=== PATIENT | female | born 2000 | race Two or more races ===

== ENCOUNTER 2019-06-01 21:03 | Emergency (ER) | payer BC, MEDICAID ==
[~2019-06-01] VITALS: Ht 157.5 cm; Wt 58.9 kg
--- NOTE | 2019-06-01 21:29 | NUR ---
FIRST CONTACT WITH PT. PT C/O MID ABDOMINAL PAIN WITH NAUSEA AFTER EATING FOR TWO DAYS, WORSENING TODAY. BLOOD IN STOOL THIS AM. PT'S AOX4. RESP SEVEN AND UNLABORED. BP/SPO2 MONITORS IN PLACE. CALL LIGHT WITHIN REACH. AWAITING ORDERES.
--- NOTE | 2019-06-01 21:48 | NUR ---
PT IS NOT ABLE TO PROVIDE URINE SAMPLE AT THIS TIME.
[2019-06-01 21:51] LABS: BASOPHILS # (AUTO) 0.03 x10^3/uL (0-0.3); BASOPHILS % (AUTO) 1 % (0-1); EOSINOPHILS % (AUTO) 2 % (1-7); LYMPHOCYTES # (AUTO) 1.84 x10^3/uL (1-6.1); LYMPHOCYTES % (AUTO) 31 % (22-44); MD NO; MEAN CORPUSCULAR HEMOGLOBIN 26.3 pg (27.0-34.8); MEAN CORPUSCULAR HGB CONC 32.6 g/dL (32.4-35.8); MEAN CORPUSCULAR VOLUME 80.8 fL (80-100); MEAN PLATELET VOLUME 9.3 fL (7.4-10.4); MONOCYTES # (AUTO) 0.43 x10^3/uL (0-1.4); MONOCYTES % (AUTO) 7 % (2-9); NEUTROPHILS # (AUTO) 3.59 x10^3/uL (1.8-8.0); NEUTROPHILS % (AUTO) 60 % (42-75); PLATELET COUNT 271 x10^3/uL (130-400); RED BLOOD COUNT 4.58 x10^6/uL (3.82-5.3)
[2019-06-01] MEDS ORDERED: ONDANSETRON 2MG/ML, 2ML ONE (21:58)
[2019-06-01] MEDS ORDERED: MORPHINE SULFATE 4 MG/ML, 1ML ONE (21:59)
[2019-06-01] MEDS ORDERED: MORPHINE SULFATE 4 MG/ML, 1ML IVPush PRN (22:00)
[2019-06-01] MEDS ORDERED: ONDANSETRON 2MG/ML, 2ML IVPush ONE (22:00)
[2019-06-01 22:03] LABS: ALANINE AMINOTRANSFERASE 27 U/L (12-78); ANION GAP 9 mmol/L (5-15); CALCIUM 8.4 mg/dL (8.5-10.1); CHLORIDE 106 mmol/L (98-107); CREATININE 0.69 mg/dL (0.55-1.02)
[2019-06-01 22:07] LABS: ALKALINE PHOSPHATASE 58 U/L (45-117); BILIRUBIN,TOTAL 0.3 mg/dL (0.2-1.0); TOTAL PROTEIN 7.9 g/dL (6.4-8.2)
--- NOTE | 2019-06-01 22:13 | NUR ---
PT MEDICATED PER EMAR. PT TOLERATED WELL.
[2019-06-01 23:03] LABS: MICROSCOPIC NOT IND
[2019-06-01 23:04] VITALS: BP 98/65
[2019-06-01 23:06] LABS: CULTURE INDICATED? NO
--- NOTE | 2019-06-02 00:31 | NUR ---
Patient given discharge instructions and they have confirmed that they understand the instructions. Patient ambulatory with steady gait.
== END 2019-06-02 00:33 | disposition home or self-care (01) ==
LOC: ED 06-02 00:20
DX: R10.13 Epigastric pain (principal); R10.12 Left upper quadrant pain; R10.32 Left lower quadrant pain; R19.7 Diarrhea, unspecified
CPT/HCPCS: 36415; 74021; 80053; 81003; 83690; 84703; 85025; 96374; 96375; 99284; J2270; J2405